=== PATIENT | male | born 1995 | race Caucasian/White ===

== ENCOUNTER → 2020-04-17 07:11 | Outpatient (CLI) | payer OTHER ==
[~2020-04-17 07:11] MED LIST: ATARAX10 MG PO; MEDROL2 MG PO
== END | disposition home or self-care (01) ==
LOC: LAB 07:11
PROVIDERS: ATTEND Podiatrist Foot Surgery
DX: D64.89 Other specified anemias (principal); E78.2 Mixed hyperlipidemia; E11.9 Type 2 diabetes mellitus without complications; E03.8 Other specified hypothyroidism; I73.89 Other specified peripheral vascular diseases